=== PATIENT | male | born 1980 | race Caucasian/White ===

== ENCOUNTER 2017-08-10 23:13 | Emergency (ER) | payer OTHER ==
[~2017-08-10] VITALS: Ht 175.3 cm; Wt 83.9 kg
--- NOTE | ~2017-08-10 | EKG ---
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 : 1980 Requested By: Emmanuel Mora Order Number: [id number] MD: Dwaine Johnson Measurements Intervals [place] Rate: 90 P: 8 MI: 157 QRS: 39 QRSD: 89 T: -11 QT: 348 QTc: 426 Interpretive Statements Sinus rhythm Borderline T abnormalities, inferior leads Baseline wander in lead(s) II,III,aVF Compared to ECG 01/15/2013 21:16:16 T-wave abnormality now present Electronically Signed On 08-11-2017 8:14:23 CALL OR CONTACT CENTRE OPERATOR by Dwaine Johnson [email or web address] <ELECTRONICALLY SIGNED> By: Dwaine Johnson MD 08/11/17 0814 [id number] Dwaine Johnson MD /EPI
[~2017-08-10 23:13] MED LIST: APAP500 PO; ENALAPRIL MALEA20 MG PO; FLEXERIL PO; IBUPROFEN 200200 M1 PO; METHADONE HCL 110 M1 PO; NORCO 5-325 TA1 EACH PO; VASOTEC10 MG PO; VENTOLIN HFA 1818 GM INH
[2017-08-11] MEDS ORDERED: DOXYCYCLINE 10100 MG PO (00:19)
[2017-08-11] MEDS ORDERED: PROAIR HFA8.5 GM INH (00:19)
== END 2017-08-11 00:30 | disposition home or self-care (01) ==
LOC: ER 23:13
DX: J98.8 Other specified respiratory disorders (principal); I10 Essential (primary) hypertension; F17.210 Nicotine dependence, cigarettes, uncomplicated

== ENCOUNTER 2017-12-18 07:47 | Emergency (ER) | payer OTHER ==
[~2017-12-18] VITALS: Ht 177.8 cm; Wt 90.7 kg
--- NOTE | ~2017-12-18 | EKG ---
[address] [address] [place] [address] ELECTROCARDIOGRAM REPORT Name: BRENDANMIKIE Room #: [facility] [id number] Admission: 12/18/17 Attend Phys: Discharge: Date of : 76 Report #: [id number] THIS REPORT FOR: //name// [facility] ED Test Date: 2017-12-18 Test Time: 08:48:37 Pat Name: MIKIE CARDONA Department: Room: Gender: Cna Per Diem: [facility] : 1980 Requested By: Geo Grewal Order Number: [id number] MD: Srinath Loredo Measurements Intervals [place] Rate: 88 P: 46 MT: 169 QRS: 41 QRSD: 85 T: 20 QT: 358 QTc: 434 Interpretive Statements Sinus rhythm Baseline wander in lead(s) V1 Compared to ECG 08/10/2017 23:35:47 T-wave abnormality no longer present Electronically Signed On 12-18-2017 9:21:08 CDT by Srinath Loredo [email or web address] <ELECTRONICALLY SIGNED> By: Srinath Loredo MD, [facility] 12/18/1721 0848 7 Srinath Loredo MD, FACC /EPI
[~2017-12-18 07:47] MED LIST changes: +DOXYCYCLINE 10100 MG PO; +PROAIR HFA8.5 GM INH
[2017-12-18 08:31] LABS: ABSOLUTE NEUTROPHILS 4.4 thou/uL (1.4-8.2); BASOPHILS 0.9 % (0.0-2.0); EOSINOPHILS 2.1 % (0.0-3.0); HEMATOCRIT 36.6 % (42.0-52.0); HEMOGLOBIN 13.1 gm/dL (14.0-18.0); LYMPHOCYTES 30.9 % (24.0-44.0); MCH 34.3 pg (26.0-34.0); MCHC 35.8 g/dL (28.0-37.0); MCV 95.8 fL (80.0-100.0); MONOCYTES 4.9 % (1.0-8.0); PLATELET COUNT 236 thou/uL (150-400); POLYS 61.2 % (36.0-66.0); RBC 3.82 mil/uL (4.50-6.00); RDW 15.1 % (10.5-14.5); WBC 7.1 thou/uL (4.0-11.0)
[2017-12-18 08:52] LABS: CALCIUM 9.1 mg/dL (8.5-10.1); CREATININE 1.5 mg/dL (0.7-1.3); POTASSIUM 4.2 mmol/L (3.5-5.1)
[2017-12-18 08:57] LABS: ALBUMIN 3.8 g/dL (3.4-5.0); MAGNESIUM 2.1 mg/dL (1.8-2.4); TOTAL BILIRUBIN 0.2 mg/dL (<0.1-1.0); TOTAL PROTEIN 8.2 g/dL (6.4-8.2)
[2017-12-18 09:11] LABS: APTT 27.3 Seconds (24.5-32.8); PROTIME 9.5 Seconds (9.3-11.4)
[2017-12-18 09:15] LABS: AMP/METHAMP Negative (Negative); BARBITURATES Negative (Negative); BENZODIAZEPINES Negative (Negative); COCAINE Negative (Negative); METHADONE POSITIVE (Negative); OPIATES Negative (Negative); PCP Negative (Negative)
[2017-12-18 10:21] VITALS: BP 119/71
== END 2017-12-18 10:24 | disposition home or self-care (01) ==
LOC: ER 07:47
PROVIDERS: Emergency Medicine
DX: R60.0 Localized edema (principal); M54.9 Dorsalgia, unspecified; G89.29 Other chronic pain; E03.9 Hypothyroidism, unspecified; G62.9 Polyneuropathy, unspecified; I10 Essential (primary) hypertension; F17.210 Nicotine dependence, cigarettes, uncomplicated

== ENCOUNTER 2019-11-01 13:41 | Emergency (ER) | payer OTHER ==
[~2019-11-01] VITALS: Ht 172.7 cm; Wt 90.7 kg
[2019-11-01] MEDS ORDERED: LIPITOR40 MG PO (13:48)
[2019-11-01 16:24] VITALS: BP 133/86
== END 2019-11-01 16:24 | disposition home or self-care (01) ==
LOC: ER 13:41
DX: K59.00 Constipation, unspecified (principal); K62.89 Other specified diseases of anus and rectum; I10 Essential (primary) hypertension; G89.29 Other chronic pain; E66.9 Obesity, unspecified; F17.210 Nicotine dependence, cigarettes, uncomplicated; Z79.899 Other long term (current) drug therapy

== ENCOUNTER 2021-03-25 08:41 | Emergency (ER) | payer OTHER ==
[~2021-03-25] VITALS: Ht 175.3 cm; Wt 90.7 kg
[~2021-03-25 08:41] MED LIST changes: +LIPITOR40 MG PO
[2021-03-25] MEDS ORDERED: ASA81BEC PO (09:19)
[2021-03-25 09:58] LABS: ABSOLUTE NEUTROPHILS 4.9 thou/uL (1.4-8.2); BASOPHILS 0.7 % (0.0-2.0); EOSINOPHILS 2.1 % (0.0-3.0); HEMATOCRIT 34.2 % (42.0-52.0); HEMOGLOBIN 11.7 gm/dL (14.0-18.0); MCH 32.3 pg (26.0-34.0); MCHC 34.3 g/dL (28.0-37.0); MCV 94.2 fL (80.0-100.0); MONOCYTES 6.3 % (1.0-8.0); PLATELET COUNT 278 thou/uL (150-400); POLYS 58.9 % (36.0-66.0); RBC 3.63 mil/uL (4.50-6.00); RDW 15.3 % (10.5-14.5); WBC 8.4 thou/uL (4.0-11.0)
[2021-03-25 10:01] LABS: CALCIUM 9.1 mg/dL (8.5-10.1); CREATININE 1.6 mg/dL (0.7-1.3); POTASSIUM 4.4 mmol/L (3.5-5.1)
[2021-03-25 10:11] LABS: TOTAL BILIRUBIN 0.3 mg/dL (0.2-1.0); TOTAL PROTEIN 8.1 g/dL (6.4-8.2)
[2021-03-25 12:18] VITALS: BP 142/77
--- NOTE | 2021-03-25 16:19 | EKG ---
[address] [employer] [place] [address] ELECTROCARDIOGRAM REPORT Name: MIKIE CARDONA NATHALIE Room #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 : 1980 Requested By: Jeferson Monteiro Order Number: [id number] MD: Srinath Loredo Measurements Intervals [place] Rate: 108 P: 25 [place]: 163 QRS: 43 QRSD: 93 T: -3 QT: 333 QTc: 447 Interpretive Statements Sinus tachycardia Borderline T abnormalities, inferior leads Compared to ECG 12/18/2017 08:48:37 T-wave abnormality now present Electronically Signed On 03-25-2021 16:19:37 CDT by Srinath Loredo [email or web address] <ELECTRONICALLY SIGNED> By: Srinath Loredo MD, [facility] 03/25/21 1619 0847 [id number] Srinath Loredo MD, FACC /EPI
== END 2021-03-25 12:18 | disposition home or self-care (01) ==
LOC: ER 08:41
PROVIDERS: Emergency Medicine
DX: R07.89 Other chest pain (principal); I10 Essential (primary) hypertension; F17.210 Nicotine dependence, cigarettes, uncomplicated; Z79.82 Long term (current) use of aspirin; Z79.899 Other long term (current) drug therapy